=== PATIENT | female | born 1970 | race Caucasian/White ===

== ENCOUNTER 2021-01-01 09:27 | Emergency (ER) | payer OTHER ==
[~2021-01-01] VITALS: Ht 175.3 cm; Wt 78.6 kg
[~2021-01-01 09:27] MED LIST: LACT1CAP35 PO; MISO200T PO; PROG100C16 PO
[2021-01-01] MEDS ORDERED: MORPHINE SULFATE 4 MG/ML, 1ML IVPush PRN (10:30)
--- NOTE | 2021-01-01 10:33 | NUR ---
PT OFF THE FLOOR TO CT
[2021-01-01] MEDS ORDERED: MORPHINE SULFATE 4 MG/ML, 1ML ONE (10:39)
[2021-01-01 11:01] LABS: BASOPHILS % (AUTO) 1 % (0-1); EOSINOPHILS % (AUTO) 2 % (1-7); LYMPHOCYTES % (AUTO) 34 % (22-44); MEAN CORPUSCULAR HEMOGLOBIN 31.3 pg (27.0-34.8); MEAN CORPUSCULAR HGB CONC 33.8 g/dL (32.4-35.8); MEAN PLATELET VOLUME 7.9 fL (7.4-10.4); MONOCYTES % (AUTO) 8 % (2-9); NEUTROPHILS % (AUTO) 56 % (42-75); PLATELET COUNT 263 x10^3/uL (130-400); RED BLOOD COUNT 4.63 x10^6/uL (3.82-5.3); RED CELL DISTRIBUTION WIDTH 13.2 % (9.6-15.2)
[2021-01-01 11:03] LABS: MD NO
[2021-01-01 11:06] LABS: HCT (SEDRATE) 42.9 % (34.6-47.8)
[2021-01-01 11:07] LABS: ALBUMIN 4.1 g/dL (3.4-5.0); ANION GAP 5 mmol/L (5-15); CALCIUM 9.3 mg/dL (8.5-10.1); CHLORIDE 108 mmol/L (98-107)
[2021-01-01] MEDS ORDERED: KETOROLAC 30 MG/1 ML ONE (11:20)
[2021-01-01] MEDS ORDERED: KETOROLAC 30 MG/1 ML IVPush ONE (11:30)
[2021-01-01 12:39] VITALS: BP 121/81
--- NOTE | 2021-01-01 12:55 | NUR ---
PT REC'VD DISCHARGE INSTRUCTIONS AND EDUCATION. PT HAD NO FURTHER QUESTIONS. PT AMBULATED TO DC AREA, STEADY GAIT.
== END 2021-01-01 12:57 | disposition home or self-care (01) ==
LOC: ED 12:55
DX: G43.019 Migraine without aura, intractable, without status migrainosus (principal); R94.31 Abnormal electrocardiogram [ECG] [EKG]
CPT/HCPCS: 36415; 70450; 80048; 82040; 83605; 85025; 85651; 93005; 96374; 96375; 99285; J1885; J2270

== ENCOUNTER 2021-01-11 11:58 | Emergency (ER) | payer OTHER ==
[~2021-01-11] VITALS: Ht 175.3 cm; Wt 77.1 kg
--- NOTE | 2021-01-11 12:35 | NUR ---
WARM BLANKET PROVIDED, CALL LIGHT WITHIN REACH.
--- NOTE | 2021-01-11 13:40 | NUR ---
ROUNDED ON PT. ORDERS OBTAINED FROM ERP. ED MEDIC IN TO START IV. MED REQUEST SENT TO PHARMACY.
[2021-01-11] MEDS ORDERED: BUTALB/APAP/CAFFEINE 50MG/325MG/40MG PO ONE (14:00)
--- NOTE | 2021-01-11 14:15 | NUR ---
PT TO MRI.
[2021-01-11] MEDS ORDERED: GADOTERATE 7.5 MMOL/15ML SYR ONE (14:28)
--- NOTE | 2021-01-11 14:52 | NUR ---
REPORT TO MARTA QUIÑONEZ, TRANSFER OF CARE AT THIS TIME.
--- NOTE | 2021-01-11 14:55 | NUR ---
REPORT FROM CARRI QUIÑONEZ PATIENT JUST NOW BACK FROM MRI NEURO EXAM WITHOUT FOCAL DEFICITS. HOWEVER REMAINS WITH LEFT FRONTAL HEADACHE, EYE DISCOMFORT WITHOUT VISION DIFFICULTY
--- NOTE | 2021-01-11 14:59 | NUR ---
PT BACK FROM MRI. MEDICATION GIVEN PER ERP ORDER FOR PETERSEN PAIN RATED 7/10. PT WILL HOLD ON XANAX AND SEE IF FIORICET/APAP/CAFFEINE WORKS. LIGHTS DIMMED, CALL LIGHT WITHIN REACH.
[2021-01-11 15:33] VITALS: BP 146/95
--- NOTE | 2021-01-11 15:36 | NUR ---
MEDICATED PER EMAR FOR CONTINUED ANXIETY/HEADACHE TO CT SCAN AT 1535
--- NOTE | 2021-01-11 16:46 | NUR ---
WITH REASSESSMENT HEADACHE IMPROVED TO 6/10 REMAINS WITH UNREMARKABLE NEUROLOGICAL EXAM WITH EXCEPTION OF LEFT EYE PAIN WITH RADIATION TO FOREHEAD
--- NOTE | 2021-01-11 16:59 | NUR ---
As alltesting resulted-poc reviewed with provider- to page neurology/vascular surgery
[2021-01-11] MEDS ORDERED: METOCLOPRAMIDE 5 MG/ML, 2ML IVPush ONE (17:30)
[2021-01-11] MEDS ORDERED: DIPHENHYDRAMINE 50 MG/ML, 1ML IVPush ONE (17:30)
[2021-01-11] MEDS ORDERED: KETOROLAC 30 MG/1 ML IVPush ONE (17:30)
[2021-01-11] MEDS ORDERED: KETOROLAC 30 MG/1 ML ONE (17:31)
[2021-01-11] MEDS ORDERED: DIPHENHYDRAMINE 50 MG/ML, 1ML ONE (17:31)
[2021-01-11] MEDS ORDERED: METOCLOPRAMIDE 5 MG/ML, 2ML ONE (17:31)
--- NOTE | 2021-01-11 18:10 | NUR ---
With reassessment headache improved to 2/10 ERp to bedside to review diagnosis/testing results (ica occulsion non-critical incedental finding)
--- NOTE | 2021-01-11 19:00 | NUR ---
BREAK RN: F/U AND D/C INSTRUCTIONS GIVEN TO PT AND SHE V/U. PT AMBULATORY AND D/C'D WITHOUT INCIDENT. PIV D/C'D AND CATH INTACT.
== END 2021-01-11 19:02 | disposition home or self-care (01) ==
LOC: ED 15:38
DX: G43.909 Migraine, unspecified, not intractable, without status migrainosus (principal); Z87.891 Personal history of nicotine dependence
CPT/HCPCS: 70496; 70498; 70553; 96374; 96375; 99285; A9575; J1200; J1885; J2765

== ENCOUNTER → 2021-05-03 | Outpatient (CLI) | payer OTHER ==
[~2021-05-03] MED LIST changes: +OMNIPAQUE 350 MG/ML, 100ML BOTTLE ONE
== END | disposition home or self-care (01) ==
LOC: RAD 14:19
PROVIDERS: ATTEND Internal Medicine Gastroenterology
DX: Z12.11 Encounter for screening for malignant neoplasm of colon (principal); K80.20 Calculus of gallbladder without cholecystitis without obstruction; R91.1 Solitary pulmonary nodule; M51.44 Schmorl's nodes, thoracic region; M51.36 Other intervertebral disc degeneration, lumbar region; M47.816 Spondylosis without myelopathy or radiculopathy, lumbar region
CPT/HCPCS: 74177; Q9967